=== PATIENT | male | born 1970 | race Hispanic/Latino ===

== ENCOUNTER 2016-06-12 06:05 | Inpatient (IN) | payer OTHER ==
--- NOTE | 2016-06-12 07:11 | ED PDOC ---
Lower Extremity Pain/Injury Time Seen by Provider: 06/12/16 07:05 Chief Complaint (Nursing): Lower Extremity Problem/Injury History Per: Patient (Right knee pain. has previous surgery for torn ACL. Now has torn meniscus.) Onset/Duration Of Symptoms: Intermittent Episodes Current Symptoms Are (Timing): Still Present Severity: Moderate Pain Scale Rating Of: 3 Past Medical History Vital Signs: Last Vital Signs Temp 97.0 F L 06/12/16 06:28 Pulse 80 06/12/16 06:28 Resp 16 06/12/16 06:28 BP 127/63 06/12/16 06:28 Pulse Ox 98 06/12/16 06:28 - Surgical History Other surgeries: Torn ACL - Family History Family History: States: Unknown Family Hx - Allergies Allergies/Adverse Reactions: Allergies Allergy/AdvReac Type Severity Reaction Status Date / Time Unobtainable Allergy Verified 06/12/16 07:05 Review of Systems ROS Statement: Except As Marked, All Systems Reviewed And Found Negative Musculoskeletal: Positive for: Other (Knee pain) Physical Exam - Physical Exam Appears: Positive for: Non-toxic, No Acute Distress Skin: Positive for: Normal Color, Warm, DRY Cardiovascular/Chest: Positive for: Regular Rate, Rhythm Respiratory: Positive for: CNT, Normal Breath Sounds Extremity: Positive for: Normal ROM. Negative for: Deformity, Swelling - ECG O2 Sat by Pulse Oximetry: 98 Disposition - Clinical Impression Clinical Impression: Tear of meniscus - Patient ED Disposition Is Patient to be Admitted: Yes - Disposition Disposition Time: 07:34 Condition: FAIR - Pt Status Changed To: Hospital Disposition Of: Inpatient - Admit Certification Admit to Inpatient:: After my assessment, the patient will require hospitalization for at least two midnights. This is because of the severity of symptoms shown, intensity of services needed, and/or the medical risk in this patient being treated as an outpatient. - POA Present On Arrival: None
[2016-06-12] MEDS ORDERED: Propofol 10 mg/ml Inj (20 ML) ONE ×2 (07:18→08:28)
[2016-06-12] MEDS ORDERED: ePHEDrine 50 mg/ml Inj ONE (07:18)
[2016-06-12] MEDS ORDERED: Phenylephrine 10 mg/ml Inj ONE (07:19)
[2016-06-12] MEDS ORDERED: Midazolam 2 MG/2 ML VIAL ONE (07:19)
[2016-06-12] MEDS ORDERED: Rocuronium 10 mg/ml (5 ml) ONE (07:19)
[2016-06-12] MEDS ORDERED: Succinylcholine 200 mg/10 ml Inj IV ONE (07:19)
[2016-06-12] MEDS ORDERED: Bupivacaine 0.5% Inj(30mL) ONE (07:24)
[2016-06-12] MEDS ORDERED: Lidocaine 1% Inj (20ml) ONE (07:24)
[2016-06-12] MEDS ORDERED: EPINEPHrine 1 mg/ml (1:1000) Inj ONE (07:26)
[2016-06-12 07:40] LABS: BASO % 0.6 % (0.0-2.0); EOS # 0.2 K/uL (0.0-0.7); EOS % 3.3 % (0.0-4.0); HEMATOCRIT 44.6 % (35.0-51.0); LYMPH # 1.1 K/uL (1.0-4.3); LYMPH % 16.2 % (20.0-40.0); MEAN CELL VOLUME 92.8 fl (80.0-94.0); MEAN CORPUSCULAR HEMOGLOBIN 31.1 pg (27.0-31.0); MEAN CORPUSCULAR HGB CONC 33.5 g/dL (33.0-37.0); MEAN PLATELET VOLUME 8.2 fl (7.2-11.7); MONO # 0.6 K/uL (0.0-0.8); MONO % 8.4 % (0.0-10.0); NEUT # 4.8 K/uL (1.8-7.0); NEUT % 71.5 % (50.0-75.0); RED CELL DISTRIBUTION WIDTH 14.4 % (11.5-14.5); WHITE BLOOD COUNT 6.7 K/uL (4.8-10.8)
[2016-06-12 07:55] LABS: ALB/GLOB RATIO 1.3 (1.0-2.1); ALKALINE PHOSPHATASE 68 U/L (38-126); ALT/SGPT 38 U/L (21-72); AST/SGOT 33 U/L (17-59); BILIRUBIN,TOTAL 0.7 mg/dl (0.2-1.3); BLOOD UREA NITROGEN 13 mg/dl (9-20); CALCIUM 8.8 mg/dL (8.4-10.2); CARBON DIOXIDE 27 mmol/L (22-30); CHLORIDE 104 mmol/L (98-107); GFR AFRICAN-AMERICAN > 60; GLUCOSE,RANDOM 91 mg/dL (75-110); POTASSIUM 4.4 MMOL/L (3.6-5.0); SODIUM 142 mmol/l (132-148); TOTAL PROTEIN 6.6 G/DL (6.3-8.2)
[2016-06-12] MEDS ORDERED: Lactated Ringer's 1,000 ML IV ONE (08:00)
[2016-06-12] MEDS ORDERED: Dexamethasone 4 mg/1 ml ONE (08:52)
[2016-06-12] MEDS ORDERED: Bupivacaine 0.5% Inj(30mL) IJ ONE (09:30)
[2016-06-12] MEDS ORDERED: Dexamethasone 4 mg/1 ml IM ONE (09:30)
[2016-06-12] MEDS ORDERED: HYDROmorphone 0.5 mg/0.5 ml ISec IVP PRN (09:41)
[2016-06-12 09:57] VITALS: RESP 18
[2016-06-12 11:24] VITALS: BP 137/74; PULSE 75; TEMP 98.3; O2SAT 95
--- NOTE | 2016-06-12 13:50 | PCM.SURG1 ---
Surgeon's Initial Post Op Note - Surgeon's Notes Surgeon: Marisol May MD Research Editor: Chele MURRY Pre-Operative Diagnosis: Right knee displaced meniscal tear Operative Findings: see dictation Post-Operative Diagnosis: same Operation Performed: Right knee medial and lateral menisectomy Specimen/Specimens Removed: none Estimated Blood Loss: EBL {In ML}: 5 Date of Surgery/Procedure: 06/12/16 Time of Surgery/Procedure: 09:00
--- NOTE | 2016-06-12 15:37 | CON ---
DATE: 06/12/2016 CHIEF COMPLAINT: Acute on chronic right knee pain and effusion. HISTORY OF PRESENT ILLNESS: The patient is a 45-year-old male who has a history of right knee pain a nd swelling. The patient reports, over the past 48 hours, he has acute symptoms, mechanical symptoms of locking and catching. He is unable to fully extend his knee and flex the knee. He has difficult y bearing weight. The patient had presented himself to the Emergency Room. The patient was seen by me in the ER complaining of excruciating right knee pain with inability to fully extend the knee. De nies any fever or chills. Denies any paresthesias or motor weakness. PHYSICAL EXAMINATION: Examination of the patient's right knee: There is an effusion. It is 2+. Ra nge of motion is from 7-110. Pain with knee flexion, unable to fully extend the knee. Positive medi al and lateral side Froylan test, negative Barbara test. Stable to varus and valgus stress. Neur ovascular intact distally. ASSESSMENT AND PLAN: A 45-year-old male with acute on chronic right knee pain, mechanical locking an d displaced meniscal tear. TREATMENT PLAN: I had a detailed discussion with the patient, reviewing his history, physical exam f indings. The patient has a history of meniscal tear. It appears the patient has a displaced menisca l tear which is leading to mechanical symptoms of locking and catching. I presented the patient the different options of nonoperative versus operative management. After careful consideration, the paco ent wanted to proceed with the operative management of a right knee arthroscopy, partial meniscectomy , synovectomy. I had reviewed the risks and benefits of the surgery with the patient in detail. The risks included, but not limited to bleeding, infection, nerve vessel damage, continued pain and swel ling among others. The patient fully understood the risks and benefits and wanted to proceed with e surgery right away. He was cleared for surgery and was taken to the OR for the urgent arthroscopy. Marisol May MD cc: [id number] TT: 06/12/2016 15:37:02 Confirmation # [id number] Dictation # [id number] tn
--- NOTE | 2016-06-12 15:41 | OP ---
PROCEDURE DATE: 06/12/2016 DATE OF OPERATION: 06/12/2016 ATTENDING PHYSICIAN: Marisol May MD PIPE AND TEST SUPERVISOR: LOVELY Machuca PREOPERATIVE DIAGNOSES: 1. Right knee acute displaced meniscal tear. 2. Mechanical locking of right knee secondary to meniscal tear. 3. Synovitis. 4. Effusion. POSTOPERATIVE DIAGNOSES: 1. Right knee displaced lateral meniscal tear. 2. Displaced medial meniscal tear. 3. Tricompartmental synovitis. 4. Grade IV osteochondral defect of trochlea. 5. 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 ANESTHESIA: General. PROCEDURE: 1. Right knee partial medial and lateral meniscectomy. 2. Synovectomy of all 3 compartments. 3. Chondroplasty of lateral femoral condyle. 4. Abrasion arthroplasty of trochlea. EBL: 5 mL. SPECIMENS: None. CLOSURE: Primary FLUIDS: See anesthesia sheet COMPLICATIONS: None. INDICATIONS: After failing a course of non-operative therapy, the patient elected to undergo the abo ve procedure. In the office, the risks and possible complications of knee arthroscopy were discussed in detail with the patient. These risks include but are not limited to continued pain, lack of motio n, infection, vascular injury, DVT/PE, nerve injury including peroneal nerve dysfunction, reflex symp athetic dystrophy, compartment syndrome, unforeseen medical and/or anesthesia complications, limb los s, and even . The patient expressed an understanding of the risks and possible benefits of the procedure, and is also aware of the alternatives to surgery. An informed consent was obtained, and was checked immediately preop. PROCEDURE: The patient was correctly identified in the holding area and the right knee was marked w ith the surgeons initials. The patient was transported to the operating room and placed in the supin e position, general anesthesia was obtained, a preoperative general labor exam under anesthesia revealed range of motion is from 10 to 110. Stable to varus and valgus stress. The lower extremity was prepped and draped in the standard fashion, and the thigh was placed in an ar throscopic leg connor. A well-padded tourniquet was applied to the patient's thigh. Time out was co mpleted confirming the correct operative site. Esmarch was used to exsanguinate the leg and tournique t was inflated to 300 mmhg. A standard anterolateral viewing portals were made with a #11 blade after sub-dermal 1% Lidocaine with Epinephrine injection. The knee was distended with normal saline and epinephrine in a 1:1,000,000 mixture, at an initial pre ssure of 35 mmHg. The arthroscope was inserted from the anterolateral portal and moved into the medi al compartment. Next, the anteromedial working portal was made with spinal needle localization. Th e arthroscopic probe was inserted, and all compartments of the knee were sequentially visualized. FINDINGS: Arthroscopic examination of the knee revealed: 1. Grade IV osteochondral defect of the trochlea. 2. Discoid displaced lateral meniscal tear. 3. Tear of the posterior horn and body of medial meniscus. 4. Tricompartmental major synovitis. The anterior cruciate ligament and posterior cruciate ligament were intact. Partial medial meniscectomy was performed with a combination of hand instruments and a 4.0 mm motoriz ed shaver. The meniscus was debrided to a smooth, stable border with an excursion of less than 3 mm. Partial lateral meniscectomy was performed with a combination of hand instruments and a 4.0 mm motori zed shaver. The meniscus was debrided to a smooth, stable border with an excursion of less than 5 mm. The motorized shaver was used to mechanically debride the loose, fibrillated and fragmented chondral edges of the lateral femoral condyle to a stable border. Extreme care was taken to not disrupt the a djacent chondral surface. The edges of injured chondral area were probed to ensure stability after th e shaver was withdrawn from the knee. The motorized shaver was used to perform a synovectomy of the medial, lateral and patellofemoral comp artment(s). The hypertrophic synovium was resected with minimal bleeding. No synovial incarceration was noted after synovectomy when the knee was put through a full passive range of motion. The full thickness chondral defect of the trochlea was then addressed using the mechanical shaver. T he shaver and a ring curette was used to denude the calcified cartilage layer and expose bleeding sub chondral bone in an effort to promote fibrocartilage formation over the eburnated area. Care was kallie en to preserve any surrounding intact chondral surface, and the perimeter of the area was inspected f or loose flaps which were smoothed. WASHOUT: The medial and lateral gutters were checked for loose bodies. At this point, the knee was t hen copiously irrigated utilizing the irrigation solution. Arthroscopic washout was performed with f ree flowing outflow through the cannula with the arthroscope removed. Finally, 1 mL of 40 mg Depomedrol mixed with 9 mL of 0.25% Marcaine was injected within the knee join t. CLOSURE: Portal closure was then accomplished utilizing sutures, and sterile dressing was applied co nsisting of Xeroform, 4 x 4's, sterile gauze, and two ABDs with a 6 inch enoch wrap. In addition, an " Ice-Man" automated portable cooling system pad was applied to the knee, over top of the sterile gauze and underneath the Enoch-wrap. This modality is medically necessary to maximize postoperative analges ia and to decrease the use of narcotic analgesics in the postoperative period. The sponge and needle count was correct at the end of the case, and all instruments were inspected and free of defects. Anesthesia was reversed and the patient was transferred to the recovery room in stable condition, hav ing tolerated the procedure well. The attending surgeon was scrubbed and present throughout the crit ical portions of the case, including all of the intra-articular arthroscopic procedures. Postoperatively, the patient will be weightbearing as tolerated and will utilize my standard post art hroscopy rehab protocol. The patient will be started on straight leg raising and quadriceps setting exercises in the recovery room and will progress to prone hangs as well as prone knee flexion exercis es using an active assisted construct. During this procedure, I was assisted by LOVELY Machuca, who assisted in positioning the patient on the operating room table as well as transferring the patient from the operating room table to the recovery room stretcher. In addition, LOVELY Machuca, assisted me during the actual operative procedure by positioning the patient's extremity to allow for easier arthroscopic access to all areas of the joint. The presence of LOVELY Machuca, as my operative ice cream freezer assistant was medically necessar y to ensure the utmost safety of the patient in the pre, intra-, and postoperative periods. Marisol May MD cc: [id number] TT: 06/12/2016 15:41:32 sn
--- NOTE | 2016-06-12 20:00 | CARD ---
APPROVED REPORT EKG Measurement Heart [id number] <Conclusion> Sinus rhythm with 1st degree AV block Otherwise normal ECG
== END 2016-06-12 12:15 | disposition home or self-care (01) | DRG 489 ==
LOC: H.ER 06:05 → H.ERHOLD 07:33
PROVIDERS: ADMIT Orthopaedic Surgery; ATTEND Orthopaedic Surgery
PROC: 0SBC4ZZ Excision of Right Knee Joint, Percutaneous Endoscopic Approach (ICD-10-PCS; 2016-06-12)
PROC: 0SBC4ZZ Excision of Right Knee Joint, Percutaneous Endoscopic Approach (ICD-10-PCS; principal; 2016-06-12 08:15)
DX: S83.241A Other tear of medial meniscus, current injury, right knee, initial encounter (principal); G89.29 Other chronic pain; S83.281A Other tear of lateral meniscus, current injury, right knee, initial encounter; M65.861 Other synovitis and tenosynovitis, right lower leg; M94.261 Chondromalacia, right knee; X58.XXXA Exposure to other specified factors, initial encounter; Y93.9 Activity, unspecified